=== PATIENT | female | born 1980 | race Caucasian/White ===

== ENCOUNTER → 2016-07-05 | Outpatient (CLI) | payer OTHER ==
[~2016-07-05] MED LIST: BACTRIM DS TABL1 TA1 PO; COLACE PO; FLEXERIL10 MG PO; IRON; NO MEDICATIONS; PRENATAL MULITV1 TAB PO; PYRIDIUM PO; SYNTHROID; VOLTAREN75 MG PO
--- NOTE | ~2016-07-05 | US128 ---
[id number] [address] [id number] O MR#: [id number] Acc #: [id number] NAME: COLE SPEAR : 1980 SEX: F STUDY DATE/TIME: 07/05/2016 12:57 UNIT: SGUS ROOM: STUDY DESCRIPTION: US Thyroid Attending Physician: Sohail Pickering M.D. Referring Physician: Sohail Pickering M.D. Ordering Physician: Sohail Pickering M.D. Primary Care Physician: Trent Clark M.D. MEDICAL IMAGING REPORT This report is preliminary unless electronic signature is present. EXAM Ultrasound of the thyroid gland. INDICATION Thyroid nodule. This was identified on a ultrasound which was performed December 23, 2015. Patient was found to have an enlarged thyroid gland on physical exam. TECHNIQUE Peralta-scale and color Doppler sonographic images were obtained through the thyroid gland. FINDINGS Thyroid gland is enlarged. Right lobe measures 5.2 x 1.8 x 2.1 cm. Left lobe measures 5.0 x 1.8 x 2.2 cm. Isthmus measures about 5 mm in thickness. Thyroid parenchyma on the right is markedly heterogeneous. It is also heterogeneous on the left. Pig Lead Melter Helper measures 3 nodules within the left lobe of the thyroid gland. There is a 5 x 4 x 4 mm hyperechoic nodule seen within the superior pole of the left lobe of the thyroid gland which I am not completely convinced was present on the prior study. An additional hyperechoic nodule is seen within the mid portion of the left lobe of the thyroid gland which measures 1.2 x 0.8 x 0.8 cm and this corresponds to the previously identified nodule. A third tiny nodule is seen within the inferior pole of the left lobe of the thyroid gland measuring 5 x 4 x 6 mm. This was probably present on the prior examination but was not measured as a discrete nodule. It is also hyperechoic. IMPRESSION 1. Dominant solid hyperechoic nodule within the left lobe of the thyroid gland is unchanged when compared to the exam from November 2015. There does appear to be 1 tiny new hyperechoic nodule seen within the superior pole of the left lobe of the thyroid gland measuring 5 x 4 x 4 mm. An additional 6 x 5 x 4 mm nodule within the inferior pole of the left lobe of the thyroid gland was probably present on the prior exam but was not measured as a discrete nodule. This appears unchanged. 2. Enlarged and heterogeneous thyroid gland. Dictated by... Renay Butt M.D. THIS IS AN ELECTRONICALLY VERIFIED REPORT Renay Butt M.D. at 07/07/2016 2:05 PM AFF/tmw TD: 07/06/2016 11:55 JOB #: [id number] MEDICAL IMAGING REPORT Page 1 of 1
== END | disposition home or self-care (01) ==
LOC: SGUS 12:27
DX: E04.1 Nontoxic single thyroid nodule (principal); E04.2 Nontoxic multinodular goiter
CPT/HCPCS: 76536

== ENCOUNTER 2016-07-08 06:15 | Emergency (ER) | payer OTHER ==
--- NOTE | ~2016-07-08 | CT71 ---
[facility] Service of [facility] RADIOLOGY TEXT RESULTS PATIENT: COLE SPEAR LOCATION: SED : [birth year] UNIT #: [id number] AGE: [address]: Maia Bell MD SEX: F ORDER DR: [id number] [place] [id number] E MR#: [id number] Acc #: [id number] NAME: COLE SPEAR. : 1980 SEX: F STUDY DATE/TIME: 07/08/2016 6:31 UNIT: SED ROOM: STUDY DESCRIPTION: CT Head Wo Contrast Attending Physician: Maia Bell M.D. Ordering Physician: Maia Bell M.D. Primary Care Physician: Divya Sanchez M.D. MEDICAL IMAGING REPORT This report is preliminary unless electronic signature is present. EXAM CT head without contrast 07/08/2016 HISTORY 36-year-old female with head pain status post fall this morning. COMPARISON None. TECHNIQUE Routine unenhanced axial images performed through the brain. This CT exam was performed with one or more of the following radiation dose reduction techniques: Automatic exposure control, adjustment of mA and/or kV according to patient size, and iterative reconstruction. FINDINGS No hemorrhage, acute infarction, mass lesion, or abnormal extraaxial fluid collection. No midline shift or focal mass effect. Ventricular system normal in size and configuration. No acute bony abnormality. Mild left forehead scalp soft tissue swelling. Visualized paranasal sinuses and mastoid air cells are clear. IMPRESSION No acute intracranial abnormality. Dictated by... Henry Espinoza M.D. THIS IS AN ELECTRONICALLY VERIFIED REPORT Henry Espinoza M.D. at 07/09/2016 8:39 AM [facility] RADIOLOGY TEXT RESULTS PATIENT: COLE SPEAR LOCATION: SED : 82 UNIT #: [id number] AGE: [address]: Maia Bell MD SEX: F ORDER DR: TD: 07/08/2016 20:11 JOB #: [id number] MEDICAL IMAGING REPORT Page 1 of 1
== END 2016-07-08 07:20 | disposition home or self-care (01) ==
LOC: SED 06:15
DX: S01.81XA Laceration without foreign body of other part of head, initial encounter (principal); S80.212A Abrasion, left knee, initial encounter; S80.211A Abrasion, right knee, initial encounter; F17.210 Nicotine dependence, cigarettes, uncomplicated; Z23 Encounter for immunization; W18.09XA Striking against other object with subsequent fall, initial encounter; Y92.89 Other specified places as the place of occurrence of the external cause
CPT/HCPCS: 12013; 70450; 90471; 90715; 99284